=== PATIENT | female | born 1975 | race Caucasian/White ===

== ENCOUNTER 2016-09-05 09:26 | Day surgery (SDC) | payer MEDICAID ==
[~2016-09-05] VITALS: Ht 162.6 cm; Wt 71.6 kg
[2016-09-05 10:09] VITALS: BP 113/76; PULSE 69; TEMP 98.1
[2016-09-05] MEDS ORDERED: CELEXA40 MG PO (10:16)
[2016-09-05] MEDS ORDERED: FIORICET 325 MG1 TA1 PO (10:16)
[2016-09-05] MEDS ORDERED: SYNTHROID 0.0.025 MG PO (10:18)
[2016-09-05] MEDS ORDERED: PRIL40 PO (10:18)
[2016-09-05] MEDS ORDERED: CLARITIN 1010 MG/TAB PO (10:18)
[2016-09-05] MEDS ORDERED: PREMARIN0.45 MG PO (10:19)
[2016-09-05 11:44] VITALS: BP 125/89; PULSE 60; TEMP 98
[2016-09-05 12:01] VITALS: BP 125/88; PULSE 70
[2016-09-05 12:13] VITALS: BP 115/83; PULSE 67
[2016-09-05 13:30] VITALS: BP 111/72; PULSE 546
== END 2016-09-05 12:35 | disposition home or self-care (01) ==
LOC: SDCO 09:26
DX: K59.00 Constipation, unspecified (principal); R19.7 Diarrhea, unspecified; R14.0 Abdominal distension (gaseous); E07.9 Disorder of thyroid, unspecified; K21.9 Gastro-esophageal reflux disease without esophagitis; Z79.899 Other long term (current) drug therapy
CPT/HCPCS: J2250; J3010; J7030

== ENCOUNTER → 2020-01-19 | Outpatient (CLI) | payer OTHER, MEDICAID ==
[~2020-01-19] MED LIST: CELEXA40 MG PO; CLARITIN 1010 MG/TAB PO; FIORICET 325 MG1 TA1 PO; PREMARIN0.45 MG PO; PRIL40 PO; SYNTHROID 0.0.025 MG PO
== END ==
LOC: COL.VAS 14:30
DX: R06.02 Shortness of breath (principal)

== ENCOUNTER → 2021-11-21 | Outpatient (CLI) | payer OTHER, MEDICAID | LOC: COL.RAD 11-18 07:30 | DX: R10.11 Right upper quadrant pain (principal); R74.8 Abnormal levels of other serum enzymes; Z90.49 Acquired absence of other specified parts of digestive tract ==

== ENCOUNTER → 2021-12-09 | Outpatient (CLI) | payer OTHER, MEDICAID | LOC: COL.RAD 06:57 | DX: D17.71 Benign lipomatous neoplasm of kidney (principal) | CPT/HCPCS: Q9967 ==

== ENCOUNTER → 2022-03-12 | Outpatient (CLI) | payer OTHER, MEDICAID | LOC: COL.VAS 09:17 | DX: M79.89 Other specified soft tissue disorders (principal) ==